=== PATIENT | female | born 1965 | race Hispanic/Latino ===

== ENCOUNTER 2017-01-09 11:42 | Day surgery (SDC) | payer BC ==
[2017-01-08 17:57] VITALS: BMI 30.4
[2017-01-09 13:23] LABS: Hematocrit 41.4 % (36.0-47.0)
[2017-01-09 13:48] LABS: Anion Gap 12 mmol/L (10-20); BUN (Urea Nitrogen) 13 mg/dL (9.8-20.1); Calc. Creatinine Clearance 127 mL/min (70-130); Calcium 10.1 mg/dL (7.8-10.44); Carbon Dioxide 27 mmol/L (22-29); Chloride 106 mmol/L (98-107); Estimated GFR-MDRD 82
[2017-01-09] MEDS ORDERED: Midazolam HCl 2 mg/2 ml Vial ONE ×2 (14:01→14:09)
[2017-01-09] MEDS ORDERED: Fentanyl 100 MCG/2 ML VIAL ONE (14:01)
[2017-01-09] MEDS ORDERED: Lidocaine 1% w/Epinephrine 1:200K 30 ML VIAL ONE (14:18)
[2017-01-09] MEDS ORDERED: Succinylcholine Chloride 20 MG/ML 10 ml SYRINGE FS ONE (15:48)
[2017-01-09] MEDS ORDERED: Lidocaine 2% PF 10 ML AMP (For Epidural Use) ONE (15:48)
[2017-01-09] MEDS ORDERED: Dexamethasone 20 MG/5 ML VIAL ONE (15:48)
[2017-01-09] MEDS ORDERED: Ondansetron HCl/PF 4 MG/2 ML Vial ONE (15:48)
[2017-01-09] MEDS ORDERED: Propofol 200 MG/20 ML VIAL ONE (15:48)
[2017-01-09] MEDS ORDERED: Ondansetron HCl/PF 4 MG/2 ML Vial IVP PRN (17:10)
[2017-01-09] MEDS ORDERED: Promethazine HCl 25 MG/ML VIAL SLOW IVP PRN ×2 (17:10→19:25)
[2017-01-09] MEDS ORDERED: HYDROmorphone 2 MG/ML VIAL SLOW IVP PRN (17:10)
[2017-01-09] MEDS ORDERED: Promethazine HCl 25 MG/ML VIAL IM PRN (17:10)
[2017-01-09] MEDS ORDERED: Pantoprazole 40 MG VIAL IVP SCH (17:30)
[2017-01-09] MEDS ORDERED: Labetalol HCl 100 MG/20 ML VIAL SLOW IVP PRN (17:44)
[2017-01-09] MEDS ORDERED: Labetalol HCl 100 MG/20 ML VIAL ONE (17:56)
[2017-01-09] MEDS ORDERED: HYDROcodone/Acetaminophen 7.5/325 mg Tablet PO PRN ×2 (19:27)
[2017-01-09] MEDS ORDERED: Labetalol HCl 100 MG/20 ML SYR SLOW IVP SCH (20:15)
[2017-01-09] MEDS ORDERED: Labetalol HCl 100 MG/20 ML VIAL SLOW IVP SCH (20:30)
[2017-01-09] MEDS ORDERED: Sodium Chloride 0.9% 20 ML ONE (20:42)
[2017-01-09] MEDS: D5 1/4 NS 1,000 ML IV SCH (20:47)
[2017-01-09] MEDS ORDERED: Lisinopril 10 MG TAB PO SCH (22:45)
[2017-01-10] MEDS: D5 1/4 NS 1,000 ML IV SCH (03:46)
[2017-01-10] MEDS ORDERED: Levothyroxine Sodium 100 MCG TAB PO SCH (06:00)
[2017-01-10] MEDS ORDERED: Lisinopril 10 MG TAB PO SCH (09:00)
[2017-01-10] MEDS ORDERED: cefTRIAXone\\ROCEPHIN 1 GM in Sodium Chloride 0.9% 100 ML IVPB SCH (09:00)
[2017-01-10 11:48] VITALS: BP 161/83; TEMP 98.5
--- NOTE | 2017-01-13 07:58 | OP ---
PREOPERATIVE DIAGNOSES: Thyroid mass and Phillip's thyroiditis. POSTOPERATIVE DIAGNOSES: Thyroid mass and Phillip's thyroiditis. PROCEDURE PERFORMED: Total thyroidectomy. PROCEDURE IN DETAIL: After consent was obtained, the patient was identified, brought to the operati ng room and placed on the operating table in supine position. General endotracheal anesthesia was o btained using a laryngeal nerve monitoring endotracheal tube and this was documented to be functioni ng normally. We then proceeded with prepping and positioning the patient for surgery. The lower ne ck was infiltrated with 1% lidocaine with 1:10,000 epinephrine in a natural skin crease. An incisio n was made and extended down through the skin, subcutaneous tissues, and platysma. Subplatysmal fla ps were elevated inferiorly and superiorly and a self-retaining retractor was placed. We then divid ed the strap muscles in midline and delivered the right lobe of the thyroid into the wound. The thy roid vessels were identified and isolated prior to divide them between clamps and suture ligating th e free edges. We identified the recurrent laryngeal nerve as well as all 4 parathyroid glands. The dissection continued medially and the thyroid ligament was transected. Attention was then turned t o the left side of the thyroid where identical technique was used. Again, the thyroid was delivered into the wound and the thyroid vessels were isolated and divided the inferior and superior artery, vein and middle vein. This then facilitated identification of recurrent laryngeal nerve and the par athyroid glands which were preserved. We then transected the thyroid ligament and dissection along the pretracheal plane. The specimen was then sent for permanent histologic evaluation. Bleeding po ints were controlled using bipolar cautery. A small drain was then placed in the wound and suture s ecured to the skin. The wound was closed by reapproximating the strap muscles and the platysma and the skin was closed with a running subcuticular. Sterile dressing was applied.
== END 2017-01-10 13:08 | disposition home or self-care (01) ==
LOC: SDC 11:42 → 3SE 18:03 → SDC 01-10 13:08
PROVIDERS: ATTEND Specialist
PROC: 0GTK0ZZ Resection of Thyroid Gland, Open Approach (ICD-10-PCS; principal; 2017-01-09)
DX: E06.3 Autoimmune thyroiditis (principal); E03.9 Hypothyroidism, unspecified; D50.9 Iron deficiency anemia, unspecified; R03.0 Elevated blood-pressure reading, without diagnosis of hypertension; Z88.5 Allergy status to narcotic agent; Z79.899 Other long term (current) drug therapy; Z98.51 Tubal ligation status; Z98.2 Presence of cerebrospinal fluid drainage device
CPT/HCPCS: 36415; 80048; 82310; 85014; 88305; 88307; 93005; 93010; 96374; A4216; J0696; J1100; J1170; J2001; J2250; J2405; J2550; J2704; J3010; J7050